=== PATIENT | male | born 1990 | race African-American/Black ===

== ENCOUNTER 2023-03-23 10:41 | Emergency (ER) | payer MEDICAID, OTHER ==
[~2023-03-23] VITALS: Ht 177.8 cm; Wt 75.0 kg
[~2023-03-23 10:41] MED LIST: INSLAN SQ
[2023-03-23] MEDS ORDERED: INSLAN SQ (11:09)
[2023-03-23 11:10] VITALS: TEMP 98.2
[2023-03-23 14:30] VITALS: BP 145/86; PULSE 80; RESP 18
[2023-03-23] MEDS ORDERED: CLOTRIMAZOLE 1% 15 GM CREAM TP ONE (14:30)
== END 2023-03-23 14:42 | disposition home or self-care (01) ==
LOC: EMS 10:41
DX: N48.1 Balanitis (principal)
CPT/HCPCS: 82962; 99282

== ENCOUNTER 2024-01-27 08:49 | Emergency (ER) | payer OTHER ==
[~2024-01-27] VITALS: Ht 177.8 cm; Wt 75.0 kg
[2024-01-27 08:57] VITALS: TEMP 97.9
[2024-01-27 12:00] VITALS: BP 119/69; PULSE 71; RESP 17; O2SAT 99
[2024-01-27] MEDS ORDERED: LISI5TAB21 PO (12:45)
[2024-01-27] MEDS ORDERED: ATOR10TA69 PO (12:45)
[2024-01-27] MEDS: PredniSONE 20 MG TABLET PO ONE (13:25)
[2024-01-27] MEDS: DiphenhydrAMINE HCL 25 MG CAPSULE PO ONE (13:27)
[2024-01-27] MEDS ORDERED: DIPH30C TP (14:22)
[2024-01-27] MEDS ORDERED: DIPH25TA51 PO (14:22)
[2024-01-27] MEDS ORDERED: PRED-554 PO (14:23)
== END 2024-01-27 15:42 | disposition home or self-care (01) ==
LOC: EMS 08:50
DX: L20.9 Atopic dermatitis, unspecified (principal); E11.9 Type 2 diabetes mellitus without complications; Z79.4 Long term (current) use of insulin
CPT/HCPCS: 99283; J7512

== ENCOUNTER 2024-12-24 15:37 | Emergency (ER) | payer SELFPAY ==
[~2024-12-24 15:37] MED LIST changes: +ATOR10TA69 PO; +DIPH25TA51 PO; +DIPH30C TP; +LISI5TAB21 PO; +PRED-554 PO
== END 2024-12-24 16:41 | disposition left against medical advice (07) ==
LOC: EMS 15:37
DX: R51.9 Headache, unspecified (principal); Z53.21 Procedure and treatment not carried out due to patient leaving prior to being seen by health care provider